=== PATIENT | female | born 1985 | race Caucasian/White ===

== ENCOUNTER → 2023-08-08 16:00 | Outpatient (CLI) | payer OTHER, SELFPAY ==
--- NOTE | ~2023-08-08 | XR_ITS ---
EXAMINATION: XR lumbar spine 2-3V DATE: 08/08/2023 16:24 INDICATION: Low back pain TECHNIQUE: Anteroposterior and lateral views of the lumbar spine, and cone-down lateral view of the l umbosacral junction were obtained. COMPARISON: None. FINDINGS: Bone alignment is normal. There is no fracture. There is moderate loss of intervertebral di sc space height at L5-S1. Small degenerative osteophytes project from the anterior endplates of multi ple vertebral bodies. There is mild facet joint osteoarthritis at L5-S1. IMPRESSION: 1. Mild to moderate lumbar spondylosis at L5-S1. Reviewed, dictated and finalized at location B.
== END ==
DX: M54.50 Low back pain, unspecified (principal); M43.06 Spondylolysis, lumbar region
CPT/HCPCS: 72100

== ENCOUNTER → 2024-09-15 17:12 | Outpatient (CLI) | payer OTHER, SELFPAY ==
--- NOTE | ~2024-09-15 | XR_ITS ---
XR chest 2V Ordering provider: NONSTAFF PHYSICIAN NOT ON STAFF History: 39 years Female with . CHRONIC COUGH. . Comparison: None. FINDINGS: MEDIASTINUM: The cardiac silhouette is not enlarged. LUNGS: No infiltrates, effusions or pneumothorax. OTHER: No free air under the diaphragm. IMPRESSION: No acute cardiopulmonary pathology. Reviewed, dictated and finalized at location A.
== END ==
DX: R05.3 Chronic cough (principal)
CPT/HCPCS: 71046

== ENCOUNTER 2025-10-12 10:39 | Emergency (ER) | payer OTHER, SELFPAY ==
[2025-10-12 10:44] VITALS: BP 149/82; PULSE 73; RESP 20; TEMP 36.9; O2SAT 98
--- NOTE | 2025-10-12 11:11 | ED_ITS ---
HPI - URI/Sore Throat General Chief Complaint: Upper Respiratory Infection Stated Complaint: throat/cough/congestion Time Seen by Provider: 10/12/25 10:55 Source: patient and RN notes reviewed Mode of arrival: ambulatory Limitations: no limitations History of Present Illness HPI Narrative: 40-year-old female presents Express Care complaining of upper respiratory symptoms approximately 8-9 days. Patient reports cough, congestion, runny nose, mucopurulent nasal drainage, sinus pressure, chills, sweats. Denies any fevers, body aches, nausea vomiting, diarrhea, chest pain, difficulty breathing, abdominal pain, or any other symptoms. Patient has been taking ibuprofen of the symptoms. Patient reports a history of hypertension. Related Data Home Medications ?Medication ?Instructions ?Recorded ?Confirmed ?Last Taken ?Type bupropion HCl 150 mg tablet,12 hr mg PO 10/12/25 Unkn own History sustained-release esterified tablet 10/12/25 Unknown His tory estrogens-methyltestosterone 1.25 mg-2.5 mg tablet losartan 50 mg tablet mg 10/12/25 Unknown History trazodone 50 mg tablet mg 10/12/25 Unknown History vibegron 75 mg tablet (Gemtesa) mg 10/12/25 Unknown H istory Allergies Allergy/AdvReac Type Severity Reaction Status Date / Time sumatriptan Allergy Intermediate SYNCOPE Verified 10/12/25 10:50 Review of Systems Review of Systems: CONSTITUTIONAL: Denies fever, or body aches. Positive for chills and sweats. EYES: Denies visual changes, redness, or discharge. ENT: Positive for rhinorrhea sinus pressure, and congestion. Negative for Sore throat, or otalgia. CARDIOVASCULAR: Denies chest pain, palpitations, or edema. RESPIRATORY: Positive for cough. Negative for dyspnea and wheezing. GASTROINTESTINAL: Denies abdominal pain, nausea, vomiting, or diarrhea. GENITOURINARY: Denies dysuria or hematuria. SKIN: Denies rash or itching. MUSCULOSKELETAL: Denies back pain, joint pain, or myalgia. NEUROLOGIC: Denies headache, numbness, or weakness. PSYCHIATRIC: Denies anxiety or depression. All other systems reviewed are negative, except as documented in HPI. PMFSH Comments At the time of my signature, I reviewed and agree with the nursing past medical, surgical, social, and family history. There is no relevant family history pertinent to the patient complaint. Exam Narrative: GENERAL: This is a well-nourished, well-developed adult, in no apparent distress. They are non ill-appearing, nontoxic appearing. HEAD: normocephalic, atraumatic. EYES: Sclera clear/white. Vision is grossly intact. Conjunctiva normal bilaterally. Extraocular movements intact. EARS: External ears normal, auditory canals clear and without drainage, TMs without erythema or perforation. Hearing grossly intact. NOSE: External nose normal with no obvious nasal discharge, nasal turbinates erythematous, no rhinorrhea. Maxillary sinus tenderness to palpation. THROAT: Mucous membranes moist, posterior pharynx erythematous without exudate. Uvula is midline. Postnasal drip present. NECK: Neck supple, non-tender without lymphadenopathy, masses or thyromegaly. CARDIOVASCULAR: Regular rate and rhythm without murmurs, gallops, or rubs. RESPIRATORY: Clear to auscultation. Breath sounds equal bilaterally. No wheezes, rales, or rhonchi. SKIN: warm, Dry, intact with no suspicious lesions or rash, good texture and turgor. NEURO: awake, alert, and oriented to person, place and time. There were no obvious focal neurologic abnormalities. EXTREMITIES: No joint tenderness, effusion, or edema noted. BACK: Nontender without deformity. Course Course Emergency Course: Portions of this record may have been created with voice recognition software Level of Care: Express Care Visit Vital Signs Vital signs: Vital Signs Temperature 98.4 F 10/12/25 10:44 Pulse Rate 73 10/12/25 10:44 Respiratory Rate 20 10/12/25 10:44 Blood Pressure 149/82 H 10/12/25 10:44 Pulse Oximetry 98 10/12/25 10:44 Oxygen Delivery Room Air 10/12/25 10:44 Temperature 98.4 F 10/12/25 10:44 Pulse Rate 73 10/12/25 10:44 Respiratory Rate 20 10/12/25 10:44 Blood Pressure 149/82 H 10/12/25 10:44 Pulse Oximetry 98 10/12/25 10:44 Oxygen Delivery Room Air 10/12/25 10:44 MDM - URI/Sore Throat MDM Narrative Medical decision making narrative: Given patient's length of symptoms likely she has bacterial sinusitis. Will treat with Augmentin. Will also send her home with a prescription benzonatate tablets for cough. Discussed physical exam findings. Advised supportive measures and signs/symptoms to go to the ER. Pt is appropriate for outpt treatment and f/u. Differential Diagnosis Differential diagnosis: Likely upper respiratory infection, sinusitis and viral infection Discharge Plan Discharge Clinical Impression: Sinusitis Qualifiers: Sinusitis location: unspecified location Chronicity: acute Recurrence: non- recurrent Qualified Code(s): J01.90 - Acute sinusitis, unspecified Patient Disposition: Home Condition: Stable Instructions: Antibiotic Form, Sinusitis (ED) Additional Instructions: Take the antibiotics as directed and complete the course even if you start to feel better. Take benzonatate tablets as needed for cough. You may use a Neti pot saline rinse 3 times a day with lukewarm distilled water Continue to take Tylenol or Motrin as needed for pain or fevers. Follow instructions on the bottle. Use a humidifier or vaporizer at night. Drink plenty of water. 8-10 glasses per day. Use flonase 2 times per day for 5 days then as needed Take mucinex 2 times per day and be sure to take with 8oz of water. Follow up with Primary provider in 3-5 days Please go to the ER if he develops any difficulty breathing, chest pain, vomiting, worsening symptoms, or any other concerns Patient Language: Macedonian Prescriptions: New benzonatate 200 mg capsule 200 mg PO BID PRN (Reason: cough) Qty: 20 0RF amoxicillin-pot clavulanate 875-125 mg tablet 1 tablet PO Q12H 7 Days Qty: 14 0RF No Action losartan 50 mg tablet bupropion HCl 150 mg tablet sustained-release 12 hr PO trazodone 50 mg tablet estrogens-methyltestosterone 1.25-2.5 mg tablet Gemtesa 75 mg tablet Follow-up/Referrals: YANELIS,MD SORAIDA [Primary Care Provider, Unknown] Time of Disposition: 11:03
--- OUTSIDE RECORDS SUMMARY | 2025-10-12 12:30 | XMS_ITS | Clinical Summary ---
Author Organization [facility] Address [address] [place] [address] Phone Care Team Providers Care Copper Flotation Operator Name Role Phone Tiffany Flower MD Primary Care Provider [phone] Allergies Active Allergy Reactions Criticality Noted Date Comments Sulfa (Sulfonamide Antibiotics) Nausea and Vomiting Low 06/22/2015 Sumatriptan Dizziness Low 06/22/2015 Medications fluticasone (FLONASE) 50 mcg/spray [place], Suspension Administer 2 Sprays in each nostril daily. Active PHENYLEPHRINE/D IPHENHYDRAMINE (ALLERGY-D ORAL)Indication s:(equate) generic form Take by mouth. Ac tive buPROPion HCL (WELLBUTRIN SR) 150 mg Sustained Release 12 hour tablet Take 150 mg by mouth daily. Active losartan (COZAAR) 25 mg tablet Take 25 mg by mouth daily. Active traZODone (DESYREL) 50 mg tablet Take 50 mg by mouth daily at bedtime. Active OTHER loratdine 10 mg once daily by mouth Active HYDROcodone-birgit taminophen (NORCO) 5-325 mg tabletIndicatio ns:Lump or mass in breast Take 1 Tablet by mouth every 4 hours as needed for Pain, Moderate. Max Daily Amount: 6 Tablets 10 Tablet 10/03/2021 10:38 AM CANOE MAKER 1 Active Ozempic 1 mg/dose (4 mg/3 mL) Pen Injector INJECT 1 MG UNDER THE SKIN EVERY WEEK DIRECTED Active pregabalin (LYRICA) 150 mg Capsule Take 1 Capsule by mouth 3 times daily. 5 Active Active Problems Patient Care Coordination No te Formatting of this note migh t be different from the original. Primary Care: Tiffany Flower MD (General) Referring Provider: Rox De, ACCOUNTS PAYABLE MANAGER [address] [id number] Other: Problem Noted Date Diagnosed Date Discharge from left nipple 08/04/2021 Intraductal papillomatosis 07/22/2015 Lump or mass in breast 06/18/2015 Overview (06/23/2015): With nipple discharge. Plan operative exploration Encounters Date Type Department Care Team Description 09/08/2025 External Device Data [facility] ABSTRACTION Provider, Abstract 08/24/2025 1:46 PM CDT - 08/24/2025 11:59 PM CDT Hospital Encounter [facility] [place] [facility] [address] [place] [id number] Minerva Prasad MD Discharge Disposition: Home or Self Care 08/21/2025 Orders Only [facility] [address] [address] [facility] [facility] [address] [place] [address] Minerva Prasad MD Discharge from left nipple (Primary Dx); Intraductal papilloma of left breast; Mass of left breast, unspecified quadrant from Last 3 Months Family History Medical History Relation Name Comments Prostate Cancer Father Dad Breast Cancer Maternal Aunt 1 Breast Cancer Maternal Aunt 2 Devora Hypertension Mother Eliana Breast Cancer Other MGAunt Colon Cancer Paternal Aunt Ingrid Breast Cancer Paternal Cousin Prostate Cancer Paternal Grandfather Grandpa Prostate Cancer Paternal Uncle 60 Ovarian Cancer Neg Hx Relation Name Status Comments Father Dad Alive Maternal Aunt 1 Alive Maternal Aunt 2 Devora Alive Mother Eliana Alive Other MGAunt Alive Paternal Aunt Ingrid Alive Paternal Cousin Paternal Grandfather Grandpa Paternal Uncle 60 Alive Social History Tobacco Use Types Packs/Day Years Used Date Smoking Tobacco: Never Smokeless Tobacco: Never Alcohol Use Standard Drinks/Week Comments Yes 0 (1 standard drink = 0.6 oz pur e alcohol) rarely Feeling Safe Answer Date Recorded Do you worry about feeling s afe and happy with the people in your life? No 12/16/2024 Comments No Sex and Gender Information Value Date Recorded Sex Assigned at Not on file Legal Sex Female 3:26 PM CDT Gender Identity Not on file Sexual Orientation Not on file Last Filed Vital Signs Vital Sign Reading Time Taken Comments Blood Pressure 134/88 12/16/2024 1:31 PM CANOE MAKER Pulse 76 12/16/2024 1:31 PM CANOE MAKER Temperature 37 C (98.6 F) 10/03/2021 9:48 AM CANOE MAKER Respiratory Rate 18 10/03/2021 10:35 AM CANOE MAKER Oxygen Saturation 98% 10/03/2021 10:35 AM CANOE MAKER Inhaled Oxygen Concentration - - Weight 122.5 kg (270 lb) 12/16/2024 1:31 PM CANOE MAKER Height 162.6 cm (5' 4) 12/16/2024 1:31 PM CANOE MAKER Body Mass Index 46.35 12/16/2024 1:31 PM CANOE MAKER Plan of Treatment Health Maintenance Due Date Last Done Comments Pre-Diabetes and Diabetes Screening 1987 HEPATITIS B VACCINES (1 of 3 - 19+ 3-dose series) 2006 HPV/Cotest (21-29) 2008 HPV VACCINES (1 - 3-dose SCD M series) 2014 CERVICAL CANCER SCREENING 2017 HPV/Cotest (30-65) 2017 PAP SMEAR 2017 DTAP/TDAP/TD VACCINES (2 - T d or Tdap) 02/21/2023 02/21/2013 INFLUENZA VACCINE (#1) 2025 , 08/15/2023, 09/03/2022, Additional history exists COVID-19 Vaccine (2024-2 6 season) 2025 09/03/2022, 09/06/2021, 01/20/2021, Additional history exists Procedures Procedure Name Priority Date/Time Associated Diagnosis Comments MAMMO 3D ALYCIA DIAGNOSTIC BILAT W OR WO CAD Routine 08/24/2025 2:19 PM CDT Intraductal papilloma of left breast from Last 3 Months Results * MAMMO 3D ALYCIA DIAGNOSTIC BILAT W OR WO CAD (08/24/2025 2:19 PM CDT) Anatomical Region Laterality Modality Breast Bilateral Mammography 08/24/2025 2:19 PM CDT Impressions 08/24/2025 2:42 PM CDT IMPRESSION: 1. Stable postsurgical changes within the left breast with multiple left breast masses consistent with history of known intraductal papillomas. Continued surgical management is recommended; patient reports plan for left mastectomy. 2. No mammographic evidence of malignancy in the right breast. OVERALL FINAL ASSESSMENT: BI-RADS CATEGORY 2: Benign findings. RECOMMENDATION: Continued surgical management given history of multiple left breast papillomas. Further evaluation with breast MRI could be performed. Continued annual screening mammography. DICTATION LOCATION: [facility] 08/24/2025 2:42 PM CDT BILATERAL DIAGNOSTIC DIGITAL MAMMOGRAM WITH TOMOSYNTHESIS AND CAD DATE: 08/24/2025 2:19 PM HISTORY: 40-year-old woman presenting for annual mammogram. She has history of multiple left intraductal papillomas with reported planned for left mastectomy given recurrent papillomas. TECHNIQUE: Diagnostic mammograms of both breast(s) were performed on a digital system. 2D and 3D acquisitions were obtained. CAD was utilized. COMPARISON: 12/11/2024 and additional prior studies back to 2020. BREAST COMPOSITION: The breasts are heterogeneously dense, which may obscure small masses. FINDINGS: There are postoperative changes of left breast excisional biopsy. Again seen are numerous masses throughout the left breast consistent with history of known intraductal papillomas. There are no definite new suspicious findings in the left breast. There are no new suspicious findings in the right breast. The appearance of the right breast is stable. Minerva Prasad MD MAMMO ORDERABLES Final Result from Last [address] [employer] Directives For more information, please contact: [phone] * Full Code (Latest Code Status on File) Date Activated Date Inactivated Comments 07/09/2015 7:44 AM 07/09/2015 12:45 PM Care Teams Copper Flotation Operator Relationship Specialty Start Date End Date Tiffany Flower MD [address] [place] [phone] PCP - General Family Practice 06/22/15
--- OUTSIDE RECORDS SUMMARY | 2025-10-12 12:30 | XMS_ITS | Clinical Summary ---
Author Organization [facility] Address [address] [place] [address] Phone Care Team Providers Care Fibrous Wallboard Inspector Name Role Phone Tiffany Flower MD Primary Care Provider [phone] Allergies Active Allergy Reactions Criticality Noted Date Comments Amoxicillin-Pot Clavulanate Unknown 11/20/19 19 Patient states she has been allergic since being an infant. Medications lisinopril-hydr oCHLOROthiazide (PRINZIDE, ZESTORETIC) 20-12.5 MG Tablet Take 1 Tab by mouth daily. Active buPROPion (WELLBUTRIN) 100 MG Tablet Take 100 mg by mouth 2 times daily. Active azithromycin (ZITHROMAX Z-LAURIE) 250 MG Tablet 2 tab(s) daily for 1 day, then 1 tab(s) daily for days 2-5. 6 Tab 11/20/2018 Active traMADol (ULTRAM) 50 MG Tablet Take 1 Tab by mouth every 6 hours as needed for Moderate or more severe pain. 20 Tab 11/20/2018 Active Social History Tobacco Use Types Packs/Day Years Used Date Smoking Tobacco: Never Smokeless Tobacco: Never Alcohol Use Standard Drinks/Week Comments Yes 0 (1 standard drink = 0.6 oz pur e alcohol) socially Comments No Sex and Gender Information Value Date Recorded Sex Assigned at Not on file Legal Sex Female 8:44 PM CDT Gender Identity Not on file Sexual Orientation Not on file Last Filed Vital Signs Vital Sign Reading Time Taken Comments Blood Pressure 164/81 06/05/2024 2:15 AM CDT Pulse 90 06/05/2024 2:15 AM CDT Temperature 37 C (98.6 F) 06/05/2024 12:37 AM CDT Respiratory Rate 17 06/05/2024 2:15 AM CDT Oxygen Saturation 99% 06/05/2024 2:15 AM CDT Inhaled Oxygen Concentration - - Weight 115.8 kg (255 lb 4.7 oz) 024 12:37 AM CDT Height 162.6 cm (5' 4) 06/05/2024 12:3 7 AM CDT Body Mass Index 43.82 06/05/2024 12:37 AM CDT Plan of Treatment Not on file Insurance [facility] Care Teams Fibrous Wallboard Inspector Relationship Specialty Start Date End Date Tiffany Flower MD [address] [place] [id number] PCP - General 11/20/18
--- OUTSIDE RECORDS SUMMARY | 2025-10-12 12:30 | XMS_ITS | Clinical Summary ---
Author Organization [facility] Address [address] [place] [id number] Care Team Providers Care Head Up Operator Helper Name Role Phone Unavailable Primary Care Provider Unavailabl e Social History Tobacco Use Types Packs/Day Years Used Date Smoking Tobacco: Never Assessed Comments Unknown Sex and Gender Information Value Date Recorded Sex Assigned at Not on file Legal Sex Female 4:41 PM DISPUTE RESOLUTION ANALYST Gender Identity Not on file Sexual Orientation Not on file Plan of Treatment Health Maintenance Due Date Last Done Comments Cervical Cancer Screening Pa p Smear (Age 30 to 64) Every 3 Years 1987 Annual Physical 1990 Hepatitis C 2005 DTaP, Tdap and Td Vaccines ( 1 - Tdap) 2006 Hepatitis B Vaccines (1 of 3 - 19+ 3-dose series) 2006 HPV Vaccines (1 - 3-dose SCD M series) 2014 Cervical Cancer Screening Pa p with HPV Testing (Age 30 to 64) Every 5 Years 2017 Cervical Cancer Screening with HPV 2017 COVID-19 Vaccine (2024-2 6 season) 2025 Influenza Adult (#1) 2025 Hepatitis A Vaccines Aged Out No long er eligible based on patient's age to complete this topic Meningococcal B Vaccine Aged Out No l onger eligible based on patient's age to complete this topic Meningococcal Vaccine Aged Out No jn gera eligible based on patient's age to complete this topic Pneumococcal Vaccine: Pediat rics (0 to 5 Years) and At-Risk Patients (6 to 49 Years) Aged Out No longer eligible b ased on patient's age to complete this topic RSV Immunizations Under 20 Months Aged Out No longer eligible based on patient's age to complete this topic
--- OUTSIDE RECORDS SUMMARY | 2025-10-12 12:30 | XMS_ITS | Clinical Summary ---
Author Organization [facility] Medical Office Building [address] Address [address] [place] [address] Care Team Providers Care Bottle Hop Name Role Phone Ching-Tiffany Laguna MD Primary Care Provider Rox De CODING ADVISOR Unavailable [phone] Allergies Active Allergy Reactions Criticality Noted Date Comments Sulfa (Sulfonamide Antibiotics) Nausea And Vomiting Low 06/22/2015 Patient states since an Sumatriptan Dizziness Low 03/31/2009 Medications fluticasone propionate (FLONASE) 50 mcg/actuation nasal sprayIndications:A llergic Conjunctivitis Administer 2 sprays into affected nostril(s) every morning Active traZODone (DESYREL) 50 mg tabletIndications: insomnia associated with depression Take 1 tablet (50 mg total) by mouth nightly Active Ozempic 1 mg/dose (4 mg/3 mL) pen injector injection INJECT 1 MG UNDER THE SKIN 1 TIME A WEEK 2 Active buPROPion SR (WELLBUTRIN SR) 150 mg 12 hr tabletIndications: Anxiety with Depression Take 2 tablets (300 mg total) by mouth 2 (two) times a day 300 mg in AM/ 150 mg at night 3 Active losartan (COZAAR) 50 mg tablet Take 1 tablet (50 mg total) by mouth nightly 3 Active ferrous sulfate ER 324 mg (65 mg iron) EC tabletIndications: Iron Deficiency Anemia Take 65 mg by mouth every morning Active cetirizine (ZyrTEC) 10 mg tabletIndications: Allergic Conjunctivitis Take 1 tablet (10 mg total) by mouth every morning Active biotin 10,000 mcg capsuleIndications :hair Take 1 capsule (10,000 mcg total) by mouth nightly Active LORazepam (ATIVAN) 0.5 mg tablet Take by mouth 2 (two) times a day as needed Active pregabalin (LYRICA) 150 mg capsule Take 1 capsule (150 mg total) by mouth 3 (three) times a day Active Active Problems Problem Noted Date Diagnosed Date Family history of colon cancer 06/27/2024 Encounter for screening colonoscopy 06/27/2024 Postoperative visit 03/08/2023 Abnormal uterine bleeding (AUB) 12/29/2022 PCOS (polycystic ovarian syndrome) 12/28/2022 Insulin resistance 12/04/2022 03/08/2023 Overview (03/08/2023): Note: Unchanged Discharge from left nipple 08/04/2021 Depression 09/16/2019 03/08/2023 Hypertension 09/16/2019 03/08/2023 Overview (03/08/2023): Note: Unchanged Anxiety disorder 05/17/2016 03/08/2023 Intraductal papillomatosis 07/22/2015 Lump or mass in breast 06/18/2015 Overview (12/20/2022): With nipple discharge. Plan operative exploration Obesity 04/05/2010 03/08/2023 Overview (03/08/2023): Note: Unchanged Immunizations Immunization Administration Dates Next Due Influenza, Quadrivalent, Ana l Culture-based MDCK, Preservative Free, Antibiotic Free, Intramuscular 09/03/2022 Influenza, Quadrivalent, Spl it, Preservative Free, Intramuscular 09/14/2021,08/10/2020,07/25/2013,08/09,09/22/2010 Tdap 02/21/2013 Surgical History Surgery Date Site/Laterality Comments SECTION APPENDECTOMY TONSILLECTOMY BREAST LUMPECTOMY 11/19/2014 - 11/18/2015 BREAST LUMPECTOMY 11/19/2020 - 11/18/2021 HYSTERECTOMY 02/17/2023 - 03/18/2023 COLONOSCOPY 06/04/2025 Medical History Medical History Date Comments Depression Hypertension GERD (gastroesophageal reflux disease) Family History Medical History Relation Name Comments No Known Problems Brother No Known Problems Child Breast cancer Cousin Paternal; second cousin Suicide Completion Father Colon cancer Father's Sister Stent Mother Breast cancer Mother's Sister 1 Colon cancer Mother's Sister 2 Alcohol abuse Other 1 Arthritis Other 1 Cancer Other 1 Heart disease Other 1 Hypertension Other 1 Mental illness Other 1 Breast cancer Other 2 Maternal Great-Aunt MTHFR Sister Relation Name Status Comments Brother Alive Child Alive Cousin Paternal; second cousin Alive Father Father's Sister Alive Mother Alive Mother's Sister 1 Alive Mother's Sister 2 Alive Other 1 Other 2 Maternal Great-Aunt Alive Sister Alive Social History Tobacco Use Types Packs/Day Years Used Date Smoking Tobacco: Never Smokeless Tobacco: Never Tobacco Cessation:Counseling Given: Not Answered AUDIT-C Answer Date Recorded Q1: How often do you have a drink containing alc ohol? 2-4 times a month 06/03/2025 Q2: How many drinks containi ng alcohol do you have on a typical day when you are drinking? 1 or 2 06/03/2025 Q3: How often do you have si x or more drinks on one occasion? Never 06/03/2025 Personal Safety Answer Date Recorded Have you ever been in or are you currently in a harmful physical or emotional relationship or is someone making you feel afraid or unsafe? Denies 06/04/2025 Comments Unknown Sex and Gender Information Value Date Recorded Sex Assigned at Not on file Legal Sex Female 7:34 PM [employer] Gender Identity Not on file Sexual Orientation Not on file Obstetrics History Para Term AB IAB SAB Ectopic Multiple Livin g Live Births 1 1 Date Outcome GA Total Labor Labor/2nd/3rd Weight Sex Type Anes PTL Maryan A1 A5 Name Clin Term Last Filed Vital Signs Vital Sign Reading Time Taken Comments Blood Pressure 153/88 06/04/2025 1:43 PM CDT Pulse 75 06/04/2025 1:43 PM CDT Temperature 36.6 C (97.9 F) 06/04/2025 1:43 PM CDT Respiratory Rate 18 06/04/2025 1:43 PM CDT Oxygen Saturation 100% 06/04/2025 1:43 PM CDT Inhaled Oxygen Concentration - - Weight 120.2 kg (265 lb) 06/04/2025 11:10 AM CDT Height 165.1 cm (5' 5) 06/04/2025 11:10 AM CDT Body Mass Index 44.1 06/04/2025 11:10 AM CDT Plan of Treatment Health Maintenance Due Date Last Done Comments Depression Screening 1987 Hepatitis C Screening 1987 Varicella Vaccines (1 of 2 - 13+ 2-dose series) 2000 Hepatitis B Screening 2005 Regular Well Visit/Exam 18-64 2005 HPV Vaccines (1 - 3-dose SCDM series) 2014 DTaP/Tdap/Td Vaccine (2 - Td or Tdap) 02/21/2023 02/21/2013 Covid-19 Vaccine ( season) 2025 09/03/2022, 09/06/2021, 01/20/2021, Additional history exists Influenza Vaccine (#1) 2025 , 08/15/2023, 09/03/2022, Additional history exists Pneumococcal vaccine <65 Aged Out No longer eligible based on patient's age to complete this topic Insurance [employer] SIG [id number] [facility] Advance Directives For more information, please contact: [phone] * Full Code (Latest Code Status on File) Date Activated Date Inactivated Comments 06/04/2025 11:06 AM 06/04/2025 5:57 PM * Full Code Date Activated Date Inactivated Comments 06/04/2025 11:06 AM 06/04/2025 11:06 AM Care Teams Bottle Hop Relationship Specialty Start Date End Date Tiffany Ayala MD [address] [place] [address] PCP - General Family Medicine 02/06/22 Rox De NP [address] [place] [address] Nurse Practitioner Obstetrics and Gynecology 04/05/23
== END 2025-10-12 11:10 | disposition home or self-care (01) ==
PROVIDERS: PCP Family Medicine
DX: J01.90 Acute sinusitis, unspecified (principal); I10 Essential (primary) hypertension; F41.9 Anxiety disorder, unspecified
CPT/HCPCS: 99213; G0463